=== PATIENT | female | born 1980 | race Caucasian/White ===

== ENCOUNTER 2017-06-18 18:14 | Inpatient (IN) | payer MEDICAID ==
[~2017-06-18] VITALS: Ht 152.4 cm; Wt 59.0 kg
[2017-06-18 18:15] VITALS: BP_SYST 117
[2017-06-18] MEDS ORDERED: NS 1000 ML BAG IV ONE (19:00)
[2017-06-18] MEDS ORDERED: ACETAMINOPHEN 500 MG TABLET PO ONE (19:00)
[2017-06-18 19:04] LABS: HEMATOCRIT 46.1 % (36-48); MEAN CORPUSCULAR HEMOGLOBIN 29 pg (27-31); MEAN CORPUSCULAR HGB CONC 32 % (32-36); MEAN CORPUSCULAR VOLUME 90 fL (79.0-98.0); PLATELET COUNT (AUTO) 395 K/uL (130-430); RED BLOOD CELL COUNT(AUTO) 5.15 MIL/uL (4.2-6.2); RED CELL DISTRIBUTION WIDTH 12.8 % (9.0-15.0); WHITE BLOOD COUNT (AUTO) 17.8 K/uL (4.8-10.8)
[2017-06-18 19:12] LABS: CALCIUM 8.5 mg/dL (8.4-11.0); CREATININE 0.94 mg/dL (0.55-1.30); POTASSIUM 3.6 mmol/L (3.5-5.1)
[2017-06-18 19:18] LABS: BILIRUBIN,URINE NEGATIVE (NEGATIVE); BLOOD, URINE 2+ (NEGATIVE); CLARITY/URINE CLOUDY (CLEAR); COLOR,URINE YELLOW (YELLOW); GLUCOSE,URINE NEGATIVE (NEGATIVE); KETONES,URINE NEGATIVE (NEGATIVE); LEUKOCYTE ESTERASE ,URINE 2+ (NEGATIVE); NITRITE, URINE POSITIVE (NEGATIVE); PROTEIN URINE 1+ (NEGATIVE); UROBILINOGEN,URINE 0.2 (0.2-1.0)
[2017-06-18 19:24] LABS: BACTERIA,URINE MANY /HPF (None Seen); BAND % (MANUAL) 1 % (0-6); BASOPHILS % (MANUAL) 0 % (0-2); EOSINOPHILS % (MANUAL) 0 % (0-7); LYMPHOCYTES % (MANUAL) 6 % (20-46); MONOCYTES % (MANUAL) 15 % (0-11); WBC,URINE >100 /HPF (0-3)
[2017-06-18 19:25] LABS: HCG,QUAL RESULT NEGATIVE (NEGATIVE); MUCUS,URINE None Seen /LPF (None Seen)
[2017-06-18] MEDS ORDERED: cefTRIAXone 1 GM VIAL IM ONE (19:45)
[2017-06-18 22:00] VITALS: BP_SYST 103
[2017-06-18] MEDS ORDERED: ONDANSETRON HCL 4 MG/2 ML VIAL IVP PRN (22:15)
[2017-06-18] MEDS: KCL 20 mEq in NS 1000 mL 1,000 ML IV SCH (22:47)
[2017-06-19 00:26] VITALS: BP_SYST 103
[2017-06-19 04:00] VITALS: BP_SYST 111; BP_SYST 128
[2017-06-19 06:48] LABS: ALBUMIN 2.3 g/dL (3.4-4.8); CREATININE 0.68 mg/dL (0.55-1.30); POTASSIUM 3.7 mmol/L (3.5-5.1); TOTAL BILIRUBIN 0.4 mg/dL (0.0-1.0)
[2017-06-19 06:57] LABS: BASOPHILS % (AUTO) 0.1 % (0.0-2.0); HEMATOCRIT 38.3 % (36-48); HEMOGLOBIN 12.8 g/dL (12.0-16.0); LYMPHOCYTES # (AUTO) 1.4 K/uL (1.0-5.5); LYMPHOCYTES % (AUTO) 7.6 % (20.5-51.5); MEAN CORPUSCULAR HEMOGLOBIN 30 pg (27-31); MEAN CORPUSCULAR HGB CONC 34 % (32-36); MEAN CORPUSCULAR VOLUME 88 fL (79.0-98.0); MONOCYTES # (AUTO) 2.3 K/uL (0.0-1.0); MONOCYTES % (AUTO) 12.8 % (1.7-9.3); NEUTROPHILS # (AUTO) 14.6 K/uL (1.8-7.7); NEUTROPHILS % (AUTO) 79.5 % (40.0-70.0); PLATELET COUNT (AUTO) 357 K/uL (130-430); RED BLOOD CELL COUNT(AUTO) 4.34 MIL/uL (4.2-6.2); RED CELL DISTRIBUTION WIDTH 12.9 % (9.0-15.0); WHITE BLOOD COUNT (AUTO) 18.3 K/uL (4.8-10.8)
[2017-06-19 07:56] VITALS: BP_SYST 101
[2017-06-19] MEDS: ACETAMINOPHEN 325 MG TABLET PO PRN ×3 (08:08→23:30)
[2017-06-19] MEDS: FAMOTIDINE 20 MG TABLET PO SCH (08:08)
[2017-06-19] MEDS: KCL 20 mEq in NS 1000 mL 1,000 ML IV SCH ×2 (08:21→18:55)
[2017-06-19] MEDS: LEVOFLOXACIN 500 MG/D5W 100 ML IV SCH (08:22)
[2017-06-19 14:38] VITALS: BP_SYST 117
[2017-06-19 16:51] VITALS: BP_SYST 117
[2017-06-19 20:00] VITALS: BP_SYST 107
[2017-06-20 00:13] VITALS: BP_SYST 107
[2017-06-20] MEDS: KCL 20 mEq in NS 1000 mL 1,000 ML IV SCH ×2 (05:25→17:40)
[2017-06-20 05:40] VITALS: BP_SYST 104
[2017-06-20 06:15] LABS: BASOPHILS % (AUTO) 0.4 % (0.0-2.0); EOSINOPHILS # (AUTO) 0.1 K/uL (0.0-0.4); EOSINOPHILS % (AUTO) 0.5 % (0.0-4.0); HEMATOCRIT 36.3 % (36-48); HEMOGLOBIN 12.3 g/dL (12.0-16.0); LYMPHOCYTES # (AUTO) 1.9 K/uL (1.0-5.5); LYMPHOCYTES % (AUTO) 17.2 % (20.5-51.5); MEAN CORPUSCULAR HEMOGLOBIN 31 pg (27-31); MEAN CORPUSCULAR HGB CONC 34 % (32-36); MEAN CORPUSCULAR VOLUME 90 fL (79.0-98.0); MONOCYTES # (AUTO) 1.5 K/uL (0.0-1.0); MONOCYTES % (AUTO) 13.7 % (1.7-9.3); NEUTROPHILS # (AUTO) 7.4 K/uL (1.8-7.7); NEUTROPHILS % (AUTO) 68.2 % (40.0-70.0); PLATELET COUNT (AUTO) 325 K/uL (130-430); RED BLOOD CELL COUNT(AUTO) 4.01 MIL/uL (4.2-6.2); WHITE BLOOD COUNT (AUTO) 10.9 K/uL (4.8-10.8)
[2017-06-20 06:49] LABS: ALBUMIN 2.1 g/dL (3.4-4.8); CALCIUM 8.4 mg/dL (8.4-11.0); CREATININE 0.63 mg/dL (0.55-1.30); POTASSIUM 3.8 mmol/L (3.5-5.1); TOTAL BILIRUBIN 0.2 mg/dL (0.0-1.0)
[2017-06-20 07:25] VITALS: BP_SYST 110
[2017-06-20] MEDS: FAMOTIDINE 20 MG TABLET PO SCH (08:14)
[2017-06-20] MEDS: LEVOFLOXACIN 500 MG/D5W 100 ML IV SCH (09:47)
[2017-06-20 12:29] VITALS: BP_SYST 119
[2017-06-20 16:13] VITALS: BP_SYST 112
[2017-06-20] MEDS: ACETAMINOPHEN 325 MG TABLET PO PRN (17:39)
[2017-06-20 20:00] VITALS: BP_SYST 119
[2017-06-21 00:31] VITALS: BP_SYST 113
[2017-06-21] MEDS: KCL 20 mEq in NS 1000 mL 1,000 ML IV SCH (07:35)
[2017-06-21 08:02] VITALS: BP_SYST 121
[2017-06-21] MEDS: FAMOTIDINE 20 MG TABLET PO SCH (09:08)
[2017-06-21] MEDS: LEVOFLOXACIN 500 MG/D5W 100 ML IV SCH (09:08)
[2017-06-21 12:21] VITALS: BP_SYST 100
[2017-06-21] MEDS: ACETAMINOPHEN 325 MG TABLET PO PRN (14:01)
[2017-06-21] MEDS ORDERED: CIPR-172 PO (16:27)
[2017-06-21 16:34] VITALS: BP_SYST 100; BP_SYST 114
== END 2017-06-21 16:55 | disposition home or self-care (01) | DRG 720 ==
LOC: SED 18:14 → STU 21:36 → SMU 06-20 13:17
PROVIDERS: ADMIT Internal Medicine; ATTEND Internal Medicine
DX: A41.9 Sepsis, unspecified organism (principal); E43 Unspecified severe protein-calorie malnutrition; R73.9 Hyperglycemia, unspecified; B96.20 Unspecified Escherichia coli [E. coli] as the cause of diseases classified elsewhere; E87.1 Hypo-osmolality and hyponatremia; N10 Acute pyelonephritis; Z68.25 Body mass index [BMI] 25.0-25.9, adult
CPT/HCPCS: 36415; 71010; 80048; 80053; 81000-TC; 83605; 84703; 85007; 85025; 85027; 86710; 87040-TC; 87086; 87186-TC; 93005; 96360; 96372; 99285; J0696; J1956; J2405; J3480; J7030